=== PATIENT | female | born 1935 | race Caucasian/White ===

== ENCOUNTER 2023-02-10 10:03 | Outpatient (CLI) | payer MEDICARE, SELFPAY ==
[2023-02-10 13:09] LABS: Basophils Percent Auto 0.2 % (0.2-1.2); Eosinophils Absolute Auto 0.1 K/mm3 (0-0.3); Eosinophils Percent Auto 0.8 % (0-4.4); Hematocrit 40.1 % (37.0-47.0); Hemoglobin 12.8 g/dL (12.0-15.0); Immature Granulocyte Absolute 0.02 K/mm3 (0.00-0.031); Immature Granulocyte Percent A 0.3 % (0-0.5); Lymphocytes Absolute Auto 1.28 K/mm3 (0.9-3.2); Lymphocytes Percent Auto 20.2 % (18.3-44.2); Mean Corpuscular HGB Conc 31.9 g/dl (32-36); Mean Corpuscular Volume 100.3 fl (80-100); Mean Platelet Volume 10.5 fl (7.4-10.4); Monocytes Absolute Auto 0.4 K/mm3 (0.1-0.6); Monocytes Percent Auto 6.9 % (2.6-8.5); Neutrophils Absolute Auto 4.6 K/mm3 (1.3-6.7); Neutrophils Percent Auto 71.6 % (45.5-73.1); Platelet Count Result 277 k/mm3 (150-375); White Blood Count 6.4 K/mm3 (4.5-10.0)
[2023-02-10 13:30] LABS: Alanine Aminotransferase 24 U/L (6-35); Alkaline Phosphatase 90 U/L (38-126); Anion Gap 7 mmol/L (8-16); Aspartate Amino Transferase 32 U/L (14-36); Bilirubin,Total 0.5 mg/dL (0.2-1.3); Blood Urea Nitrogen 23 mg/dL (7-17); Carbon Dioxide 29 mmol/L (22-30); Chloride 104 mmol/L (98-107); Cholesterol 177 mg/dL (0-200); Estimated Glomerular Filt Rate > 60; Glucose 102 mg/dL (65-110); HDL Direct 58 mg/dL; Potassium 3.8 mmol/L (3.4-5.0); Sodium 140 mmol/L (137-145); Triglycerides 74 mg/dL (<150)
[2023-02-10 13:34] LABS: Hemoglobin A1C 5.6 % (<5.7)
[2023-02-10 13:50] LABS: LDL Cholesterol Direct 91 mg/dL
[2023-02-10 13:58] LABS: Vitamin D 25 Hydroxy 19.5 ng/mL
== END 2023-02-10 10:04 | disposition home or self-care (01) ==
LOC: ANHGOSHLAB 10:04
PROVIDERS: PCP Family Medicine; Visit Provider Nurse Practitioner Family
DX: Z13.21 Encounter for screening for nutritional disorder (principal); Z13.220 Encounter for screening for lipoid disorders; I10 Essential (primary) hypertension; Z13.29 Encounter for screening for other suspected endocrine disorder
CPT/HCPCS: 36415; 80053; 80061; 82306; 83036; 84443; 85025

== ENCOUNTER → 2023-05-20 13:22 | Outpatient (CLI) | payer MEDICARE, SELFPAY ==
--- NOTE | ~2023-05-20 | XR_ITS ---
EXAMINATION: XR chest 2V DATE: 05/20/2023 13:36 INDICATION: Mid chest pain. TECHNIQUE: Frontal and lateral views of the chest were obtained. COMPARISON: Chest 2 views 02/28/2014 FINDINGS: There is mild atelectasis at left lung base. No pleural effusion or pneumothorax. The heart size is normal. IMPRESSION: 1. Mild atelectasis at left lung base. Reviewed, dictated and finalized at location E.
== END ==
PROVIDERS: PCP Family Medicine; Visit Provider Family Medicine
DX: J98.11 Atelectasis (principal)
CPT/HCPCS: 71046

== ENCOUNTER 2023-07-01 16:01 | Inpatient (IN) | payer MEDICARE, SELFPAY ==
--- NOTE | ~2023-07-01 | CT_ITS ---
EXAMINATION: CT abdomen pelvis w con DATE: 07/01/2023 20:02 INDICATION: Rectal bleeding. History of hemorrhoids. Abdominal pain. TECHNIQUE: Computed tomography (CT) of the abdomen and pelvis was performed with 100 cc Omnipaque 350 intravenous contrast. The dose-length product was 1373.98 mGy-cm. Automated exposure control and ite rative reconstruction technique were employed. COMPARISON: None. FINDINGS: Lung bases are unremarkable. Heart size normal. No significant pleural or pericardial effus ion. There are bilateral renal cysts. There is a 5.3 x 3.7 cm left adnexal cyst, likely ovarian. House raymundo diverticulosis without evidence for diverticulitis. Nonobstructive bowel pattern. No free air or free fluid. Normal appendix. No significant vascular abnormality. The liver, spleen, pancreas, adrenal glands are unremarkable. No solid renal masses are identified. N o hydronephrosis. No free air or free fluid. IMPRESSION: 1. No acute abdominal abnormality. 2: Left adnexal cyst measuring 5.3 cm. Differential diagnosis includes functional cyst, peritoneal i nclusion cyst, cystadenoma and cystadenocarcinoma. Reviewed, dictated and finalized at location A. IMPRESSION: 1. No acute abdominal abnormality. 2: Left adnexal cyst measuring 5.3 cm. Differential diagnosis includes functio nal cyst, peritoneal inclusion cyst, cystadenoma and cystadenocarcinoma.
[2023-07-01 16:25] VITALS: BP 127/61; PULSE 108; RESP 18; TEMP 36.2; O2SAT 99
[2023-07-01 18:59] LABS: Basophils Percent Auto 0.6 % (0.2-1.2); Eosinophils Absolute Auto 0.1 K/mm3 (0-0.3); Eosinophils Percent Auto 1.9 % (0-4.4); Hematocrit 25.4 % (37.0-47.0); Hemoglobin 8.2 g/dL (12.0-15.0); Immature Granulocyte Absolute 0.03 K/mm3 (0.00-0.031); Immature Granulocyte Percent A 0.4 % (0-0.5); Lymphocytes Absolute Auto 1.28 K/mm3 (0.9-3.2); Lymphocytes Percent Auto 18.2 % (18.3-44.2); Mean Corpuscular HGB Conc 32.3 g/dl (32-36); Mean Corpuscular Hemoglobin 32.3 pg (26-34); Monocytes Absolute Auto 0.5 K/mm3 (0.1-0.6); Monocytes Percent Auto 7.1 % (2.6-8.5); Neutrophils Percent Auto 71.8 % (45.5-73.1); Platelet Count Result 257 k/mm3 (150-375); Red Blood Count 2.54 M/mm3 (4.2-5.4); Red Cell Distribution Width 12.9 % (11.5-14.5)
[2023-07-01 19:11] LABS: Alanine Aminotransferase 25 U/L (6-35); Albumin Level 3.6 g/dL (3.5-5.1); Alkaline Phosphatase 76 U/L (38-126); Anion Gap 5 mmol/L (8-16); Aspartate Amino Transferase 27 U/L (14-36); Bilirubin,Total 0.3 mg/dL (0.2-1.3); Blood Urea Nitrogen 32 mg/dL (7-17); Calcium 8.5 mg/dL (8.4-10.2); Carbon Dioxide 28 mmol/L (22-30); Chloride 103 mmol/L (98-107); Estimated Glomerular Filt Rate > 60; Glucose 128 mg/dL (65-110); INR 1.1; Potassium 3.5 mmol/L (3.4-5.0); Prothrombin Time 14.6 Seconds (11.1-14.7); Sodium 136 mmol/L (137-145)
[2023-07-01 19:12] LABS: Partial Thromboplastin Time 24.9 SECONDS (22.3-36.8)
[2023-07-01 20:05] VITALS: BP 147/84; PULSE 104; RESP 16; O2SAT 97
--- NOTE | 2023-07-01 20:12 | ED.GENADULT ---
HPI - General Adult General Chief complaint: GI Bleed Stated complaint: rectal bleeding Time Seen by Provider: 07/01/23 19:21 History of Present Illness HPI narrative: Patient is a 88-year-old female who presents emergency department with chief complaint of GI bleed. Patient reports that she has history of anemia and was supposed to take iron supplements but has not been able to take them due to constipation patient reports that she noticed that she started having blood mixed with her stool and has had melanotic colored stool today the patient reports that she has had no lightheadedness denies chest pain denies shortness of breath but she has a little bit of an uncomfortable feeling throughout her abdomen. Patient denies being on any blood thinners does report that she takes aspirin Related Data Home Medications Medication Instructions Recorded Confirmed vit C 250 mg-vit E 90 mg-zinc 40 1 tablet PO BID 10/29/21 02/05/23 mg-copper 1 [id number] capsule (PreserVision AREDS-2) ferrous sulfate 325 mg (65 mg 325 mg PO DAILY 02/12/23 iron) tablet Allergies Allergy/AdvReac Type Severity Reaction Status Date / Time No Known Allergies Allergy Verified 05/20/23 12:54 Review of Systems Review of Systems: A 10 system review of systems was completed on the patient and is negative except for what is stated in the HPI. Nursing and ancillary documentation was reviewed. [facility] Past Medical History Medical History Anemia Dyslipidemia Essential (primary) hypertension Macular degeneration Osteoarthritis Osteopenia Prediabetes Family History Family History Sibling Family history of malignant neoplasm of breast in first degree relative Social History Social History Smoking status: Former smoker Second hand tobacco smoke exposure: No Smoking end date: 09/20/79 Alcohol intake: current Substance use type: does not use Lack of Transportation: No Lack of Food: Never True Current Housing: I Have Housing Concerned About Future Housing: No Difficulty Paying Gas/Electric Bills: No Difficulty Paying for Meds: No Currently Unemployed: No Education: Master's Degree or Higher Difficulty w/ Childcare or Family Care: No Living arrangements: alone Exam Narrative: GENERAL: Well-appearing, well-nourished, and in no acute distress. HEAD: Normocephalic, atraumatic. EYES: PERRLA and EOMI. ENT: Nares clear, no rhinorrhea or epistaxis. Mucous membranes moist. NECK: Supple. CHEST: Clear to auscultation. No respiratory distress. HEART: Regular rate and rhythm. No murmur heard. Normal peripheral pulses. ABDOMEN: Soft, nontender, nondistended, normal active bowel sounds. : Melanotic guaiac positive stool EXTREMITIES: Normal range of motion. No edema. SKIN: Warm, dry, no rash. NEURO: No focal deficits. Alert and oriented x3. PSYCH: Normal mood and affect. Course Vital Signs Vital signs: Vital Signs Temperature 36.2 C L 07/01/23 16:25 Pulse Rate 108 H 07/01/23 16:25 Respiratory Rate 18 07/01/23 16:25 Blood Pressure 127/61 07/01/23 16:25 Pulse Oximetry 99 07/01/23 16:25 Oxygen Delivery Room Air 07/01/23 16:25 Temperature 36.2 C L 07/01/23 16:25 Pulse Rate 104 H 07/01/23 20:05 Respiratory Rate 16 07/01/23 20:05 Blood Pressure 147/84 H 07/01/23 20:05 Pulse Oximetry 97 07/01/23 20:05 Oxygen Delivery Room Air 07/01/23 16:25 Medical Decision Making [facility] Narrative Medical decision making narrative: Differential diagnosis includes lower GI bleed, AVM, hemorrhoid, colitis, diverticulitis Laboratory studies showed a white count of 7.0 hemoglobin of 8.2 this is a significant change from her previous hemoglobin from February 06 that was 12.8 Electrolytes are wit
--- NOTE | 2023-07-01 21:02 | PM.IMHP ---
H&P: HPI History of Present Illness Date/Time: 07/01/23 21:02 Chief Complaint: Dark stool Narrative: This is an 88-year-old female with past medical history significant for hypertension, arthritis, GERD. Patient presents to the emergency room after having melena x1 day and 1 episode of bright red blood per rectum denies any hematemesis or coffee-ground emesis. Patient has been in her usual state of health denies weight loss early satiety nausea vomiting or abdominal pain no changes in stool character. Preliminary workup was significant for Guiac was positive. Preliminary hemoglobin 8 hematocrit 25 Review of Systems Review of Systems: Melena Constitutional: Constitutional: Denies chills, Denies fatigue, Denies fever(s), Denies malaise, Denies poor appetite and Denies weakness Eyes: Eyes: Denies change in vision ENT: Denies dysphagia, Denies vertigo, Denies dizziness and Denies odynophagia Cardiovascular: Cardiovascular: Denies chest pain, Denies radiating jaw, neck or arm pain and Denies palpitations Respiratory: Respiratory: Denies cough, Denies excessive phlegm production and Denies dyspnea Gastrointestinal: Gastrointestinal: Denies abdominal pain, Reports melena, Reports hematochezia, Denies change in bowel habits, Denies coffee ground emesis, Denies constipation, Denies dyspepsia, Denies heartburn, Denies nausea, Denies vomiting and Denies hematemesis Genitourinary: Genitourinary: Denies dysuria Musculoskeletal: Musculoskeletal: Reports arthralgias (knee R) Integumentary/Breasts: Skin/Breast: Denies rash Neurologic: Denies focal weakness and Denies Sensory deficit (Neuro) Psychiatric: Psychiatric: Reports no additional psychiatric complaints and Reports as per HPI Endocrine: Endocrine: Denies cold intolerance, Denies fatigue, Denies flushing, Denies heat intolerance, Denies polyphagia, Denies polydipsia and Denies palpitations Hematologic/Lymphatic: Hematologic/Lymphatic: Reports no additional hematologic/lymphatic complaints and Reports as per HPI Allergic/Immunologic: Allergic/Immunologic: Reports no additional allergic/immunologic complaints and Reports as per HPI PMFSH Past Medical History Medical History Anemia Dyslipidemia Essential (primary) hypertension Macular degeneration Osteoarthritis Osteopenia Prediabetes Family History Family History Sibling Family history of malignant neoplasm of breast in first degree relative Social History Social History Smoking status: Former smoker Tobacco type: cigarettes Second hand tobacco smoke exposure: No Smoking end date: 09/20/79 Alcohol intake: current Substance use: never Substance use type: does not use Lack of Transportation: No Lack of Food: Never True Current Housing: I Have Housing Concerned About Future Housing: No Difficulty Paying Gas/Electric Bills: No Difficulty Paying for Meds: No Currently Unemployed: No Education: Master's Degree or Higher Difficulty w/ Childcare or Family Care: No Living arrangements: alone Spiritual care concerns: No Meds Home Medications and Allergies Home Medications Medication Instructions Recorded Confirmed Type indapamide 2.5 mg tablet 2.5 mg PO DAILY #90 tabs 08/03/22 07/01/23 Rx diclofenac sodium 75 mg 75 mg PO BID #180 ea 02/03/23 07/01/23 Rx tablet,delayed release ferrous sulfate 325 mg (65 mg 325 mg PO DAILY 02/12/23 07/01/23 History iron) tablet omeprazole 20 mg capsule,delayed 20 mg PO DAILY #90 caps 05/20/23 07/01/23 Rx release amlodipine 10 mg tablet 10 mg PO DAILY #90 tabs 06/01/23 07/01/23 Rx magnesium 400 mg PO DAILY 07/01/23 07/01/23 History potassium 99 mg PO DAILY 07/01/23 07/01/23 History turmeric 2,000 mg PO DAILY joint health 07/01/23 07/01/23 History
[2023-07-01 22:11] VITALS: BP 121/72; PULSE 105; RESP 16; O2SAT 98
[2023-07-01 22:25] VITALS: BP 108/83; PULSE 93; RESP 16; TEMP 35.9; O2SAT 98
[2023-07-01 22:29] VITALS: BMI 37.5
--- NOTE | 2023-07-01 22:48 | ADMGEN ---
This patient, Vida Estrada, was admitted to 3 Med Surg Room 306-02. Patient/family oriented to hospital policies and general routines including ID bracelet, bed and alarms, visiting hours, pain management, procedures, bathroom and other care routines, personal items, smoking policy, room service/diet, and visiting hours. Information on how to activate the Rapid Response Team has been discussed. Patient/Family are encouraged to report perceived risks to care and to ask questions if they do not understand what they are told or what they should do.
[2023-07-02] VITALS (16 sets, daily range): BP systolic 99–120; BP diastolic 30–70; PULSE 78–127; RESP 13–20; TEMP 36.2–36.6; O2SAT 91–100
--- NOTE | 2023-07-02 | ECHO_ITS ---
Patient Info Name: Vida Estrada Age: 88 years : 1935 Gender: Female Ht: 63 in Wt: 211 lbs BSA: 2.11 m2 HR: 78 bpm BP: 120 / 50 mmHg Heart Rhythm: Sinus Rhythm Technical Quality: Fair Exam Date: 07/02/2023 1:50 PM Exam Location: [facility] Pulmonary Exam Room: 306 Patient Status: Outpatient Admit Date: 07/01/2023 Staff Ordering Physician: Stephen Harman MD Air Motor Repairer: Beatrice Tapia RDCS Attending Provider: Shawanda Vu MD Exam Type: CA echo dop color flow w con Study Info Indications - dysrythmias Complete two-dimensional, color flow and Doppler transthoracic echocardiogram is performed with contrast to opacify the left ventricle and to improve the deliniation of the left ventricle endocardial borders. Contrast/Agitated Saline Contrast/Ag. Saline: Definity Amount: 2.00 ml Administered By: Beatrice Tapia [facility] Existing IV Access: Yes IV Access Condition: patent with no signs of infiltration Summary 1. Left ventricular chamber dimension is normal. 2. Left ventricular systolic function is hyperdynamic, estimated at >70%. 3. There is mild asymmetric septal increased left ventricular wall thickness. 4. The left ventricular diastolic function is grade I diastolic dysfunction. 5. Left atrial chamber dimension is mildly enlarged. 6. There is moderate aortic valve sclerosis. 7. There is mild tricuspid valve regurgitation. 8. Moderate pulmonary hypertension, estimated pulmonary arterial systolic pressure is 54 mmHg. 9. There is mild pulmonic regurgitation. Left Ventricle Left ventricular chamber dimension is normal. Left ventricular systolic function is hyperdynamic, estimated at >70%. There is mild asymmetric septal increased left ventricular wall thickness. The left ventricular diastolic function is grade I diastolic dysfunction. Right Ventricle Right ventricular chamber dimension is normal. Right ventricular systolic function is normal. Left Atria Left atrial chamber dimension is mildly enlarged. Right Atria Right atrial chamber dimension is normal. Atrial Septum Intact interatrial septum visualized by color flow imaging. Aortic Valve The aortic valve is trileaflet. There is moderate aortic valve sclerosis. There is no aortic valve stenosis. There is trace aortic valve regurgitation. Pulmonic Valve The pulmonic valve is normal. There is no pulmonic valve stenosis. There is mild pulmonic regurgitation. Mitral Valve The mitral valve has calcified annulus. There is no mitral valve stenosis. There is trace mitral valve regurgitation. Tricuspid Valve The tricuspid valve leaflets are normal. There is no significant tricuspid valve stenosis. There is mild tricuspid valve regurgitation. Moderate pulmonary hypertension, estimated pulmonary arterial systolic pressure is 54 mmHg. Pericardium/Pleural The pericardium appears normal. There is no pericardial effusion. Inferior Vena Cava Normal inferior vena cava with <50% collapse upon inspiration consistent with normal right atrial pressure, 10 mmHg. Aorta The aortic root size at the sinus of Valsalva is normal. Left Ventricular Outflow Tract Name Value Normal LVOT 2D LVOT Diameter 2.07 cm LVOT Doppler
[2023-07-02] MEDS: SODIUM CHLORIDE 0.9% IV 1,000 ML 125 ML IV CONT (00:05)
[2023-07-02 00:16] LABS: Hematocrit 23.8 % (37.0-47.0); Hemoglobin 7.5 g/dL (12.0-15.0)
[2023-07-02 04:58] LABS: Hematocrit 21.7 % (37.0-47.0)
[2023-07-02] MEDS: PANTOPRAZOLE SODIUM IV 40 MG VIAL IV PUSH (08:01)
[2023-07-02 09:27] LABS: Hematocrit 20.6 % (37.0-47.0); Hemoglobin 6.6 g/dL (12.0-15.0)
--- NOTE | 2023-07-02 10:30 | PM.IMPN ---
Progress Note: A&P Assessment and Plan (1) Acute GI bleeding: Code(s): K92.2 - Gastrointestinal hemorrhage, unspecified Status: Acute Assessment and Plan: Patient with acute rectal bleeding. She is having bright red blood per rectum probably related to either hemorrhoids and/or diverticulosis. She states she has had a colonoscopy 3-4 years ago although no records noted in the chart here. She does take chronic NSAIDs. She was presumably iron deficient prior to admission so she may have an underlying etiology for her anemia such as gastritis or peptic ulcer disease. GI has been consulted. Hemoglobin has dropped to 6.6 so will transfuse 1 unit. Some of the drop may be related to IV fluids. Continue Protonix. Serial hemoglobin after transfusion to ensure stability (2) Acute blood loss anemia: Code(s): D62 - Acute posthemorrhagic anemia Status: Acute Assessment and Plan: Patient's hemoglobin was 8.2 on admission. Hemoglobin was normal in January but she states that she was diagnosed with anemia recently and started on iron. She could not tolerate the iron due to constipation. Thus it is unclear what her baseline hemoglobin was prior to the acute blood loss. As mentioned above, she may have an underlying cause of anemia. Will check iron studies, B12 and folate levels. Transfuse. She will need iron supplement after discharge. (3) Dysrhythmia: Code(s): I49.9 - Cardiac arrhythmia, unspecified Status: Acute Assessment and Plan: Patient with dysrhythmia noted on the telemetry possibly AFib and/or Aflutter. Will check EKG. Check echocardiogram. Check electrolytes. Will add metoprolol when BP improves. Monitor on telemetry. May need home monitoring. Obviously no anticoagulation. (4) Essential (primary) hypertension: Code(s): I10 - Essential (primary) hypertension Status: Acute Assessment and Plan: BP soft. Hold anti-HTN medications. Continue IV fluids. Transfusion will help. (5) Ovarian cyst: Code(s): N83.209 - Unspecified ovarian cyst, unspecified side Status: Acute Assessment and Plan: CT scan showing no acute process but did show a left ovarian cyst. Given her age, this will need to be monitored as outpatient. Plan DVT Prophylaxis - SCDs Code status - full Subjective Date/time seen: 07/02/23 10:30 Interval history: 88yo female with pre-DM and HTN here for rectal bleeding. Patient states that she was diagnosed with iron deficiency anemia few months ago was given iron. She had trouble tolerate the iron stopped it. She is on diclofenac chronically. She rarely uses other [id number] NSAIDs. She states that she developed bright red blood per rectum mixed with brown stool. She denies having black stools. Last colonoscopy was 3-4 years ago showing no polyps. Patient does mention that she has had swelling in her rectal area and she did use a cream for this with improvement. It was suspected it was a steroid cream. Exam Narrative: AF 97.1 99/70 105 18 94% ra Gen - NARD Chest - CTA bilaterally, nml RR CV - RRR S1/S2. Tele showing sinus rhythm with episodes of possible AFib Abd - Soft, obese, NT Ext - No pedal edema Psych - Nml mood and affect Skin - Warm and dry Objective Data Vital Signs Vital Signs: Vital Signs - 24 hr 07/01/23 16:25 07/01/23 20:05 07/01/23 22:11 Temperature 97.1 F L Pulse Rate 108 H 104 H 105 H Respiratory Rate 18 16 16 Blood Pressure 127/61 147/84 H 121/72 Pulse Oximetry 99 97 98 Oxygen Delivery Room Air 07/01/23 22:25 07/02/23 00:00 07/02/23 04:00 Temperature 96.7 F L Pulse Rate 93 108 H 98 Respiratory Rate 16 Blood Pressure 108/83 Pulse Oximetry 98 Oxygen Delivery 07/02/23 06:00 07/02/23 08:00 Temperature 97.1 F L Pulse Rate 90 105 H Respiratory Rate 18 Blood Pressure 99/70 L Pulse Oximetry 94 Oxygen Delivery Int
--- NOTE | 2023-07-02 10:54 | ECG_ITS ---
Measurements Intervals [place] Rate: 90 P: -19 MT: 232 QRS: 10 QRSD: 95 T: 26 QT: 343 QTc: 422 Interpretive Statements SINUS RHYTHM WITH FIRST DEGREE AV BLOCK NONSPECIFIC ST & T-WAVE ABNORMALITY ABNORMAL ECG NO PREVIOUS ECG AVAILABLE FOR COMPARISON Electronically Signed On 07-02-2023 14:08:15 CDT by Silas Farris M.D.
[2023-07-02] MEDS: ACETAMINOPHEN 325 MG TABLET 650 MG PO (11:15)
[2023-07-02] MEDS: SODIUM CHLORIDE 0.9% IV 250 ML 30 ML IV CONT (11:15)
[2023-07-02 11:49] LABS: Anion Gap 4 mmol/L (8-16); Blood Urea Nitrogen 28 mg/dL (7-17); Carbon Dioxide 25 mmol/L (22-30); Chloride 107 mmol/L (98-107); Estimated CRCL calculation 53 ml/min; Estimated Glomerular Filt Rate > 60; Glucose 109 mg/dL (65-110); Magnesium 2.1 mg/dL (1.6-2.3); Potassium 3.1 mmol/L (3.4-5.0); Sodium 136 mmol/L (137-145)
[2023-07-02 14:16] LABS: Iron 36 ug/dL (37-170)
[2023-07-02] MEDS: PERFLUTREN LIPID MICROSPHERES 1.5 ML VIAL DILUTED TO 10 ML TOTAL VOLUME IV PUSH (14:20)
--- NOTE | 2023-07-02 15:14 | WPDGICN ---
Assessment and Plan Assessment and plan (1) Acute blood loss anemia: Code(s): D62 - Acute posthemorrhagic anemia Status: Acute Assessment and Plan: noted brbpr, wonder if could be lower source such as diverticulosis, avm, etc monitor for more signs of bleeding no GI coverage this , if further drop h/h or more obvious bleeding then will need to transfer for more urgent scopes otherwise we are planning to do EGD/colonoscopy Wednesday (I already ordered bowel prep for this Wednesday evening) (2) Acute GI bleeding: Code(s): K92.2 - Gastrointestinal hemorrhage, unspecified Status: Acute Assessment and Plan: s/p blood transfusion also protonix since she is using daily nsaid's and PUD could be a source of bleeding (3) Rectal bleeding: Code(s): K62.5 - Hemorrhage of anus and rectum Status: Acute (4) Colon, diverticulosis: Code(s): K57.30 - Diverticulosis of large intestine without perforation or abscess without bleeding Status: Acute Assessment and Plan: ? 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 anti-inflammatories (NSAID) Status: Acute Assessment and Plan: on hold (6) Essential (primary) hypertension: Code(s): I10 - Essential (primary) hypertension Status: Acute GI Consult Note Consult date/time: 07/02/23 15:14 Reason for consult: rectal bleeding, colon diverticulosis, acute anemia HPI: Vida Estrada is a 88 year old female with hypertension, arthritis on daily diclofenac, colon diverticulosis with last colonoscopy [address] Nascimento.?She came here with new onset of bright red blood per rectum about 3 days ago more than one episode, denies abdominal pain, no dark stools, no nausea. Never had EGD. She has been diagnosed with RONAN but last hgb ~ 12, on presentation hgb 8 repeat down to 6.6, she already got one unit of PRBC. CT scan showed colon diverticulosis. BUN 38, creat 0.7 Review of Systems Constitutional: Constitutional: Denies chills Eyes: Eyes: Denies blurry vision ENT: Reports Normal hearing present Cardiovascular: Cardiovascular: Denies chest pain Respiratory: Respiratory: Denies cough Gastrointestinal: Gastrointestinal: Denies abdominal pain and Reports hematochezia Genitourinary: Genitourinary: Denies urinary urgency Musculoskeletal: Musculoskeletal: Reports arthralgias (chronic) Integumentary/Breasts: Skin/Breast: Denies rash Neurologic: Denies confusion Psychiatric: Psychiatric: Denies behavioral changes [facility] Past Medical History Medical History (Updated 07/02/23 @ 15:19 by Luis Silver MD) Anemia Colon, diverticulosis Dyslipidemia Essential (primary) hypertension Macular degeneration NSAID long-term use Osteoarthritis Osteopenia Prediabetes Rectal bleeding Family History Family History Sibling Family history of malignant neoplasm of breast in first degree relative Social History Social History Smoking status: Former smoker Tobacco type: cigarettes Second hand tobacco smoke exposure: No Smoking end date: 09/20/79 Alcohol intake: current Substance use: never Substance use type: does not use Lack of Transportation: No Lack of Food: Never True Current Housing: I Have Housing Concerned About Future Housing: No Difficulty Paying Gas/Electric Bills: No Difficulty Paying for Meds: No Currently Unemployed: No Education: Master's Degree or Higher Difficulty w/ Childcare or Family Care: No Living arrangements: alone Spiritual care concerns: No Meds Home Medications and Allergies Home Medications Medication Instructions Recorded Confirmed Type indapamide 2.5 mg tablet 2.5 mg PO DAILY #90 tabs 08/03/22 07/01/23 Rx diclofenac sodium 75 mg 75 m
[2023-07-02 15:37] LABS: Hematocrit 26.1 % (37.0-47.0); Hemoglobin 8.2 g/dL (12.0-15.0)
[2023-07-02 15:55] LABS: Folic Acid 13.3 ng/mL (2.76->20)
--- NOTE | 2023-07-02 16:01 | IVDEFINITY ---
Prior to administration of IV Definity the patient was educated on the risks and benefits of the imaging enhancing agent including potential adverse side effects. The patient verbalized understanding. Allergies were verified. No exclusion criteria were identified and at least one of the following inclusion criteria were met: 1) physician request, 2) patient technically difficult to image (per the [place] [employer] guidelines of two or more segments not discernable within the apical view), or 3) questionable left ventricular function. ?
[2023-07-02] MEDS: POTASSIUM CHLORIDE 20 MEQ ER TABLET 40 MEQ PO (17:49)
[2023-07-02] MEDS: CYANOCOBALAMIN INJ 1,000 MCG/ML VIAL 1000 MCG IM (17:50)
[2023-07-02 18:12] LABS: Percent Iron Saturation 15 % (20-50)
[2023-07-02] MEDS: SODIUM CHLORIDE 0.9% IV 1,000 ML 75 ML IV CONT (20:16)
[2023-07-02 21:29] LABS: Hemoglobin 7.4 g/dL (12.0-15.0)
[2023-07-03] VITALS (19 sets, daily range): BP systolic 95–127; BP diastolic 35–68; PULSE 72–109; RESP 16–19; TEMP 36.2–36.6; O2SAT 93–100
[2023-07-03 06:55] LABS: Basophils Percent Auto 0.6 % (0.2-1.2); Eosinophils Absolute Auto 0.3 K/mm3 (0-0.3); Eosinophils Percent Auto 6.5 % (0-4.4); Hematocrit 21.8 % (37.0-47.0); Immature Granulocyte Absolute 0.03 K/mm3 (0.00-0.031); Immature Granulocyte Percent A 0.6 % (0-0.5); Lymphocytes Percent Auto 21.8 % (18.3-44.2); Mean Corpuscular HGB Conc 31.7 g/dl (32-36); Mean Corpuscular Hemoglobin 31.9 pg (26-34); Mean Corpuscular Volume 100.9 fl (80-100); Mean Platelet Volume 9.9 fl (7.4-10.4); Monocytes Absolute Auto 0.5 K/mm3 (0.1-0.6); Monocytes Percent Auto 8.9 % (2.6-8.5); Neutrophils Absolute Auto 3.1 K/mm3 (1.3-6.7); Neutrophils Percent Auto 61.6 % (45.5-73.1); Nucleated Red Blood Cells Perc 0.4 % (0.0-0.2); Platelet Count Result 198 k/mm3 (150-375); Red Blood Count 2.16 M/mm3 (4.2-5.4); Red Cell Distribution Width 15.3 % (11.5-14.5); White Blood Count 5.1 K/mm3 (4.5-10.0)
[2023-07-03 07:04] LABS: Hemoglobin 6.9 g/dL (12.0-15.0)
[2023-07-03 07:08] LABS: Anion Gap 3 mmol/L (8-16); Blood Urea Nitrogen 27 mg/dL (7-17); Carbon Dioxide 23 mmol/L (22-30); Chloride 110 mmol/L (98-107); Estimated CRCL calculation 61 ml/min; Estimated Glomerular Filt Rate > 60; Glucose 101 mg/dL (65-110); Potassium 3.1 mmol/L (3.4-5.0); Sodium 136 mmol/L (137-145)
[2023-07-03] MEDS: ACETAMINOPHEN 325 MG TABLET 650 MG PO ×2 (07:57→13:55)
[2023-07-03] MEDS: CYANOCOBALAMIN 1,000 MCG TABLET 1000 MCG PO (08:01)
[2023-07-03] MEDS: POTASSIUM CHLORIDE 20 MEQ PACKET (FOR LIQUID) 40 MEQ PO (08:01)
[2023-07-03] MEDS: PANTOPRAZOLE SODIUM IV 40 MG VIAL IV PUSH (08:02)
[2023-07-03] MEDS: FUROSEMIDE INJ 40 MG/4 ML VIAL 20 MG IV PUSH (13:33)
--- NOTE | 2023-07-03 15:10 | PM.IMPN ---
Progress Note: A&P Assessment and Plan (1) Acute GI bleeding: Code(s): K92.2 - Gastrointestinal hemorrhage, unspecified Status: Acute Assessment and Plan: Patient with acute rectal bleeding. She is having bright red blood per rectum probably related to either hemorrhoids and/or diverticulosis. She states she has had a colonoscopy 3-4 years ago although no records noted in the chart here. She does take chronic NSAIDs. She was presumably iron deficient prior to admission so she may have an underlying etiology for her anemia such as gastritis or peptic ulcer disease. GI has been consulted. Hemoglobin dropped to 6.6 and was transfused 1 unit. Hgb improved but dropped again to 6.9. She is receiving 2U PRBC (no GI coverage this weekend so want to ensure improved HH). Continue Protonix. Serial hemoglobin after transfusion to ensure stability (2) Acute blood loss anemia: Code(s): D62 - Acute posthemorrhagic anemia Status: Acute Assessment and Plan: Patient's hemoglobin was 8.2 on admission. Hemoglobin was normal in January but she states that she was diagnosed with anemia recently and started on iron. She could not tolerate the iron due to constipation. Thus it is unclear what her baseline hemoglobin was prior to the acute blood loss. As mentioned above, she may have an underlying cause of anemia. Iron studies c/w iron deficiency (except low TIBC). Ferritn low end of normal at 33. B12 deficiency noted and replacement ordered. Folate level okay. She will need iron supplement after discharge. (3) Dysrhythmia: Code(s): I49.9 - Cardiac arrhythmia, unspecified Status: Acute Assessment and Plan: Patient with dysrhythmia noted on the telemetry possibly AFib and/or Aflutter vs loss of P wave from 1sr degree. EKG reviewed showing NSR. Echo showing EF 70%, mild asymmetric septal increased LV wall thicknss. Grade I diastolic dysfunction and moderate pulmonary HTN. Will add metoprolol when BP improves. Monitor on telemetry. May need home monitoring. Obviously no anticoagulation. (4) Essential (primary) hypertension: Code(s): I10 - Essential (primary) hypertension Status: Acute Assessment and Plan: BP soft. Hold anti-HTN medications. Stop IV fluids. (5) Ovarian cyst: Code(s): N83.209 - Unspecified ovarian cyst, unspecified side Status: Acute Assessment and Plan: CT scan showing no acute process but did show a left ovarian cyst. Given her age, this will need to be monitored as outpatient. Plan DVT Prophylaxis - SCDs Code status - full Subjective Date/time seen: 07/03/23 15:10 Interval history: 88yo female with pre-DM and HTN here for rectal bleeding. No complaints. Slept poorly last night due to noise. No CP. No abd or back pain. No rectal bleeding. Exam Narrative: AF 97.8 127/68 78 18 100% ra Gen - NARD sitting up in the chair Chest - CTA bilaterally, nml RR CV - RRR S1/S2. Tele showing sinus rhythm with ?Afib (P wave may be hidden with 1st degree AVB) Abd - Soft, obese, NT Ext - No pedal edema Psych - Nml mood and affect Skin - Warm and dry Objective Data Vital Signs Vital Signs: Vital Signs - 24 hr 07/02/23 16:00 07/02/23 21:35 07/02/23 23:19 Temperature 97.3 F L Pulse Rate 102 H 127 H 100 Respiratory Rate 20 Blood Pressure 111/69 Pulse Oximetry 96 Oxygen Delivery 07/02/23 20:00 07/03/23 00:00 07/03/23 04:00 Temperature Pulse Rate 81 99 97 Respiratory Rate Blood Pressure Pulse Oximetry Oxygen Delivery 07/03/23 06:00 07/03/23 08:00 07/03/23 08:00 Temperature 97.7 F Pulse Rate 72 75 Respiratory Rate 18 Blood Pressure 112/35 L Pulse Oximetry 93 93 Oxygen Delivery Room Air 07/03/23 10:25 07/03/23 10:40 07/03/23 11:25 Temperature 97.2 F L 97.7 F 97.5 F L Pulse Rate 99 100 100 Respiratory Rate 18 18 18 Blood Pressure 103/56 L 117/54 L 10
[2023-07-03 19:00] LABS: Hematocrit 32.6 % (37.0-47.0); Hemoglobin 10.5 g/dL (12.0-15.0)
[2023-07-03] MEDS: MELATONIN 3 MG TABLET PO (21:29)
[2023-07-04] VITALS (11 sets, daily range): BP systolic 121–151; BP diastolic 43–114; PULSE 65–104; RESP 16–18; TEMP 36–36.6; O2SAT 92–99
[2023-07-04 00:39] LABS: Hematocrit 28.9 % (37.0-47.0); Hemoglobin 9.4 g/dL (12.0-15.0)
[2023-07-04 06:17] LABS: Basophils Percent Auto 0.4 % (0.2-1.2); Eosinophils Absolute Auto 0.5 K/mm3 (0-0.3); Eosinophils Percent Auto 10.9 % (0-4.4); Hematocrit 28.5 % (37.0-47.0); Hemoglobin 9.1 g/dL (12.0-15.0); Immature Granulocyte Absolute 0.02 K/mm3 (0.00-0.031); Immature Granulocyte Percent A 0.4 % (0-0.5); Lymphocytes Absolute Auto 0.97 K/mm3 (0.9-3.2); Mean Corpuscular HGB Conc 31.9 g/dl (32-36); Mean Corpuscular Hemoglobin 31.3 pg (26-34); Mean Corpuscular Volume 97.9 fl (80-100); Mean Platelet Volume 9.6 fl (7.4-10.4); Monocytes Absolute Auto 0.5 K/mm3 (0.1-0.6); Monocytes Percent Auto 9.5 % (2.6-8.5); Neutrophils Absolute Auto 2.9 K/mm3 (1.3-6.7); Neutrophils Percent Auto 58.8 % (45.5-73.1); Platelet Count Result 212 k/mm3 (150-375); Red Blood Count 2.91 M/mm3 (4.2-5.4); Red Cell Distribution Width 15.9 % (11.5-14.5); White Blood Count 4.9 K/mm3 (4.5-10.0)
[2023-07-04 06:29] LABS: Anion Gap 3 mmol/L (8-16); Blood Urea Nitrogen 25 mg/dL (7-17); Carbon Dioxide 26 mmol/L (22-30); Chloride 109 mmol/L (98-107); Estimated CRCL calculation 53 ml/min; Estimated Glomerular Filt Rate > 60; Glucose 100 mg/dL (65-110); Sodium 138 mmol/L (137-145)
[2023-07-04] MEDS: POTASSIUM CHLORIDE 20 MEQ ER TABLET 40 MEQ PO (06:55)
[2023-07-04] MEDS: PANTOPRAZOLE SODIUM IV 40 MG VIAL IV PUSH (08:45)
[2023-07-04] MEDS: CYANOCOBALAMIN 1,000 MCG TABLET 1000 MCG PO (08:46)
[2023-07-04 12:18] LABS: Hematocrit 32.2 % (37.0-47.0); Hemoglobin 9.8 g/dL (12.0-15.0)
--- NOTE | 2023-07-04 15:41 | PM.IMPN ---
Progress Note: A&P Assessment and Plan (1) Acute GI bleeding: Code(s): K92.2 - Gastrointestinal hemorrhage, unspecified Status: Acute Assessment and Plan: Patient with acute rectal bleeding. She is having bright red blood per rectum probably related to either hemorrhoids and/or diverticulosis. She states she has had a colonoscopy 3-4 years ago although no records noted in the chart here. She does take chronic NSAIDs. She was presumably iron deficient prior to admission so she may have an underlying etiology for her anemia such as gastritis or peptic ulcer disease. GI has been consulted. Hemoglobin dropped to 6.6 and was transfused 1 unit. Hgb improved but dropped again to 6.9 and received 2U PRBC. Hgb climbed to 9 range and stable. Continue Protonix. Serial hemoglobin to ensure stability Plan for endoscopic eval tomorrow. (2) Acute blood loss anemia: Code(s): D62 - Acute posthemorrhagic anemia Status: Acute Assessment and Plan: Patient's hemoglobin was 8.2 on admission. Hemoglobin was normal in January but she states that she was diagnosed with anemia recently and started on iron. She could not tolerate the iron due to constipation. Thus it is unclear what her baseline hemoglobin was prior to the acute blood loss. As mentioned above, she may have an underlying cause of anemia. Iron studies c/w iron deficiency (except low TIBC). Ferritn low end of normal at 33. B12 deficiency noted and replacement ordered. Folate level okay. She will need iron supplement after discharge. Hgb stable in the 9 range. Monitor. (3) Dysrhythmia: Code(s): I49.9 - Cardiac arrhythmia, unspecified Status: Acute Assessment and Plan: Patient with dysrhythmia noted on the telemetry possibly AFib and/or Aflutter vs loss of P wave from 1st degree. EKG reviewed showing NSR. Echo showing EF 70%, mild asymmetric septal increased LV wall thickness. Grade I diastolic dysfunction and moderate pulmonary HTN. Will add metoprolol when BP improves. Monitor on telemetry. May need home monitoring. Obviously no anticoagulation. (4) Essential (primary) hypertension: Code(s): I10 - Essential (primary) hypertension Status: Acute Assessment and Plan: BP was soft. Holding anti-HTN medications. BP better controlled (5) Ovarian cyst: Code(s): N83.209 - Unspecified ovarian cyst, unspecified side Status: Acute Assessment and Plan: CT scan showing no acute process but did show a left ovarian cyst. Given her age, this will need to be monitored as outpatient. Plan DVT Prophylaxis - SCDs Code status - full Subjective Date/time seen: 07/04/23 15:41 Interval history: 88yo female with pre-DM and HTN here for rectal bleeding. 2 BMs today. No further rectal bleeding. Slept better last night. No CP or palpitations. No hx of AFib Exam Narrative: AF 97.4 128/54 77 16 99% ra Gen - NARD sitting up in the chair Chest - CTA bilaterally, nml RR CV - RRR S1/S2. Tele showing NSR with PVCs Abd - Soft, obese, NT Ext - No pedal edema Psych - Nml mood and affect Skin - Warm and dry Objective Data Vital Signs Vital Signs: Vital Signs - 24 hr 07/03/23 16:00 07/03/23 16:20 07/03/23 17:20 Temperature 97.4 F L 97.4 F L Pulse Rate 75 72 109 H Respiratory Rate 18 18 Blood Pressure 118/57 L 122/60 Pulse Oximetry 98 100 Oxygen Delivery 07/03/23 17:30 07/03/23 20:00 07/03/23 22:00 Temperature 97.4 F L 97.7 F Pulse Rate 109 H 98 78 Respiratory Rate 18 19 16 Blood Pressure 122/60 127/62 Pulse Oximetry 99 94 Oxygen Delivery Room Air 07/03/23 20:00 07/04/23 00:00 07/04/23 04:00 Temperature Pulse Rate 105 H 75 66 Respiratory Rate Blood Pressure Pulse Oximetry Oxygen Delivery 07/04/23 06:00 07/04/23 09:59 07/04/23 08:00 Temperature 96.8 F L Pulse Rate 65 Respiratory Rate 16 Blood Pressure 121/43 L
[2023-07-04] MEDS: BISACODYL 5 MG TABLET EC 20 MG PO (17:23)
[2023-07-04] MEDS: polyethylene glycoL 3350 238 GM BOTTLE PO (17:23)
[2023-07-04 18:40] LABS: Hematocrit 35.7 % (37.0-47.0); Hemoglobin 10.6 g/dL (12.0-15.0)
[2023-07-04] MEDS: IRON SUCROSE COMPLEX 100 MG in SODIUM CHLORIDE 0.9% IV 50 ML 220 MG IVPB (18:51)
[2023-07-04] MEDS: MELATONIN 3 MG TABLET PO (20:43)
[2023-07-05] VITALS (10 sets, daily range): BP systolic 90–140; BP diastolic 47–82; PULSE 65–99; RESP 16–18; TEMP 36.1–36.8; O2SAT 92–100
[2023-07-05 01:30] LABS: Hematocrit 33.7 % (37.0-47.0); Hemoglobin 10.5 g/dL (12.0-15.0)
[2023-07-05] MEDS: MAGNESIUM CITRATE 300 ML BTL PO (02:15)
[2023-07-05 06:44] LABS: Hematocrit 34.3 % (37.0-47.0); Hemoglobin 10.9 g/dL (12.0-15.0); Mean Corpuscular HGB Conc 31.8 g/dl (32-36); Mean Corpuscular Hemoglobin 31.6 pg (26-34); Mean Corpuscular Volume 99.4 fl (80-100); Mean Platelet Volume 9.7 fl (7.4-10.4); Platelet Count Result 262 k/mm3 (150-375); Red Blood Count 3.45 M/mm3 (4.2-5.4); Red Cell Distribution Width 15.6 % (11.5-14.5); White Blood Count 6.1 K/mm3 (4.5-10.0)
[2023-07-05 06:50] LABS: Anion Gap 9 mmol/L (8-16); Blood Urea Nitrogen 20 mg/dL (7-17); Carbon Dioxide 23 mmol/L (22-30); Chloride 107 mmol/L (98-107); Estimated CRCL calculation 61 ml/min; Estimated Glomerular Filt Rate > 60; Glucose 107 mg/dL (65-110); Magnesium 2.1 mg/dL (1.6-2.3); Potassium 3.2 mmol/L (3.4-5.0); Sodium 139 mmol/L (137-145)
[2023-07-05] MEDS: POTASSIUM CHLORIDE 20 MEQ ER TABLET 40 MEQ PO (08:09)
[2023-07-05] MEDS: PANTOPRAZOLE SODIUM IV 40 MG VIAL IV PUSH (08:10)
[2023-07-05] MEDS: CYANOCOBALAMIN 1,000 MCG TABLET 1000 MCG PO (08:12)
[2023-07-05] MEDS: IRON SUCROSE COMPLEX 100 MG in SODIUM CHLORIDE 0.9% IV 50 ML 220 MG IVPB (10:00)
--- NOTE | 2023-07-05 10:43 | PC.NURSE ---
to GI lab for procedure
[2023-07-05] MEDS: LACTATED RINGERS 1,000 ML 150 ML IV CONT (11:03)
--- NOTE | 2023-07-05 12:16 | WPDANESEPPF ---
Anes - Initial Pre Proc Eval Procedure: Operation Date: 07/05/23 15:00 Proposed Procedures p Esophagogastroduodenoscopy & Colonoscopy - Luis Silver MD Date/Time: 07/05/23 12:16 Surgeon: Shawanda Vu MD Pre Op Diagnosis: GI Bleed, Anemia Patient Data Age: 88 Gender: F Height: 1.6 m Weight: 96 kg Last Vital Signs Temp 97 F L 07/05/23 11:01 Pulse 98 07/05/23 11:01 Resp 18 07/05/23 11:01 BP 140/77 07/05/23 11:01 Pulse Ox 97 07/05/23 11:01 O2 Del Method Room Air 07/05/23 11:01 Allergies Allergy/AdvReac Type Severity Reaction Status Date / Time No Known Allergies Allergy Verified 07/05/23 10:58 Home Medications Medication Instructions Recorded Confirmed Type indapamide 2.5 mg tablet 2.5 mg PO DAILY #90 tabs 08/03/22 07/01/23 Rx diclofenac sodium 75 mg 75 mg PO BID #180 ea 02/03/23 07/01/23 Rx tablet,delayed release ferrous sulfate 325 mg (65 mg 325 mg PO DAILY 02/12/23 07/01/23 History iron) tablet omeprazole 20 mg capsule,delayed 20 mg PO DAILY #90 caps 05/20/23 07/01/23 Rx release amlodipine 10 mg tablet 10 mg PO DAILY #90 tabs 06/01/23 07/01/23 Rx magnesium 400 mg PO DAILY 07/01/23 07/01/23 History potassium 99 mg PO DAILY 07/01/23 07/01/23 History turmeric 2,000 mg PO DAILY joint health 07/01/23 07/01/23 History vit C 250 mg-vit E 90 mg-zinc 40 1 tablet PO BID 07/01/23 07/01/23 History mg-copper 1 [id number] capsule (PreserVision AREDS-2) Laboratory Tests 07/04/23 07/04/23 07/05/23 12:12 18:23 01:25 WBC RBC Hgb 9.8 L g/dL 10.6 L g/dL 10.5 L g/dL (12.0-15.0) (12.0-15.0) (12.0-15.0) Hct 32.2 L % 35.7 L % 33.7 L % (37.0-47.0) (37.0-47.0) (37.0-47.0) MCV MCH MCHC RDW Plt Count MPV Sodium Potassium Chloride Carbon Dioxide Anion Gap BUN Creatinine Estim Creat Clear Calc Estimated GFR Glucose Calcium Magnesium 07/05/23 06:11 WBC 6.1 K/mm3 (4.5-10.0) RBC 3.45 L M/mm3 (4.2-5.4) Hgb 10.9 L g/dL (12.0-15.0) Hct 34.3 L % (37.0-47.0) MCV 99.4 fl (80-100) MCH 31.6 pg (26-34) MCHC 31.8 L g/dl (32-36) RDW 15.6 H % (11.5-14.5) Plt Count 262 k/mm3 (150-375) MPV 9.7 fl (7.4-10.4) Sodium 139 mmol/L (137-145) Potassium 3.2 L mmol/L (3.4-5.0) Chloride 107 mmol/L (98-107) Carbon Dioxide 23 mmol/L (22-30) Anion Gap 9 mmol/L (8-16) BUN 20 H mg/dL (7-17) Creatinine 0.60 L mg/dL (0.7-1.0) Estim Creat Clear Calc 61 ml/min Estimated GFR > 60 (59 - ) Glucose 107 mg/dL (65-110) Calcium 9.0 mg/dL (8.4-10.2) Magnesium 2.1 mg/dL (1.6-2.3) Patient hx anesthesia problems: none Family hx anesthesia problems: none Results Review: All pre-operative results and documents have been reviewed as part of the pre-operative evaluation. [facility] Past Medical History Medical History (Updated 07/02/23 @ 15:19 by Luis Silver MD) Anemia Colon, diverticulosis Dyslipidemia Essential (primary) hypertension Macular degeneration NSAID long-term use Osteoarthritis Osteopenia Prediabetes Rectal bleeding Family History Family History Sibling Family history of malignant neoplasm of breast in first degree relative Social History Social History Smoking status: Former smoker Tobacco type: cigarettes Second hand tobacco smoke exposure: No Smoking end date: 09/20/79 Alcohol intake: current Substance use: never Substance use type: does not use Lack of Transportation: No Lack of Food: Never True Current
[2023-07-05] MEDS: BENZOCAINE (*SP) 60 ML SPRAY CAN (HURRICAINE) 1 SPRAY MUCOUS MEM (12:21)
--- NOTE | 2023-07-05 12:32 | SUR.OPER ---
EGD: [id number] COLON: Start 1232
--- NOTE | 2023-07-05 15:31 | ECG_ITS ---
Measurements Intervals [place] Rate: 85 P: CT: 143 QRS: 2 QRSD: 88 T: 7 QT: 332 QTc: 395 Interpretive Statements SINUS RHYTHM WITH PREMATURE ATRIAL CONTRACTIONS BASELINE ARTIFACT MODERATE VOLTAGE CRITERIA FOR LVH, CONSIDER NORMAL VARIANT MINIMAL ST DEPRESSION ABNORMAL ECG COMPARED TO ECG 07/02/2023 12:48:54 ST (T WAVE) DEVIATION NOW PRESENT Electronically Signed On 07-05-2023 17:28:12 CDT by Manuel Blas M.D.
--- NOTE | 2023-07-05 17:06 | PM.DS ---
DS: Admitting Diagnosis Discharge Date 07/05/23 Admitting Diagnosis Rectal bleeding DS: Discharge Diagnosis Discharge Diagnosis (1) Acute GI bleeding: Code(s): K92.2 - Gastrointestinal hemorrhage, unspecified Status: Acute (2) Acute blood loss anemia: Code(s): D62 - Acute posthemorrhagic anemia Status: Acute (3) Dysrhythmia: Code(s): I49.9 - Cardiac arrhythmia, unspecified Status: Acute Assessment and Plan: Patient with dysrhythmia noted on the telemetry possibly AFib and/or Aflutter vs loss of P wave from 1st degree. EKG reviewed showing NSR. Echo showing EF 70%, mild asymmetric septal increased LV wall thickness. Grade I diastolic dysfunction and moderate pulmonary HTN. Will add metoprolol when BP improves. Monitor on telemetry. May need home monitoring. Obviously no anticoagulation. (4) Essential (primary) hypertension: Code(s): I10 - Essential (primary) hypertension Status: Acute (5) Ovarian cyst: Code(s): N83.209 - Unspecified ovarian cyst, unspecified side Status: Acute DS: Summary Hospital Course Reason for hospitalization: 88yo female with pre-DM and HTN here for rectal bleeding. Please see H&P for details. Hospital Course: Patient presents with acute rectal bleeding.? She was having bright red blood per rectum.?She does take chronic NSAIDs.?Hemoglobin was normal in January but she states that she was diagnosed with anemia recently and started on iron.? She could not tolerate the iron due to constipation.?Iron studies c/w iron deficiency (except low TIBC). Ferritin low end of normal at 33. B12 deficiency noted and replacement ordered. Folate level okay.? GI was consulted.? Hemoglobin was 8.2 on admission but dropped to 6.6 and was transfused 1 unit. Hgb improved but dropped again to 6.9 and received 2U PRBC. Hgb climbed to 9-10 range and remained stable. She was treated with Protonix. Patient was on telemetry and noted to have dysrhythmia possibly AFib and/or Aflutter vs loss of P wave from 1st degree.? EKG reviewed showing NSR. Echo showing EF 70%, mild asymmetric septal increased LV wall thickness. Grade I diastolic dysfunction and moderate pulmonary HTN.? CT scan showing no acute process but did show a left adnexal cyst measuring 5.3cm. This will need to be monitored as outpatient. She had an EGD showing small hiatal hernia and mild gastritis. Colonoscopy showing multiple diverticula t/o the colon but mostly left sided. No active bleeding. A few small sized internal hemorrhoids were seen and were not actively bleeding. She was having normal BMs without blood. Hgb was stable. She overall did well and was able to be discharged home on 07/05/23. Status at Discharge Cognitive/behavioral status at discharge: stable Time Spent with Patient Time attestation: Total time spent providing and/or coordinating discharge services: 40 minutes Time spent: Greater than 30 minutes Exam Narrative: AF 97.1 110/82 99 18 100% ra Gen - NARD sitting up in the chair Chest - CTA bilaterally, nml RR CV - RRR S1/S2. Tele showing possibly AFib Abd - Soft, obese, NT Ext - No pedal edema Psych - Nml mood and affect Skin - Warm and dry DS: Data Data Completed and Pending Pending studies at discharge: Pending at discharge 07/05/23 12:36 Surgical [PTH] Routine Labs on day of discharge: Labs from last 24 hours 07/05/23 07/05/23 07/04/23 06:11 01:25 18:23 WBC 6.1 RBC 3.45 L Hgb 10.9 L 10.5 L 10.6 L Hct 34.3 L 33.7 L 35.7 L MCV 99.4 MCH 31.6 MCHC 31.8 L RDW 15.6 H Plt Count 262 MPV 9.7 Sodium 139 Potassium 3.2 L Chloride 107 Carbon Dioxide 23 Anion Gap 9 BUN 20 H Creatinine 0.60 L Estim Creat Clear Calc 61 Estimated GFR > 60 Glucose 107 Calcium 9.0 Magnesium 2.1 Discharge Plan Discharge Attending physician on discharge: Stephen Harman
== END 2023-07-05 18:05 | disposition home or self-care (01) | DRG 378 ==
LOC: ANHED 20:52 → ANH3MEDSUR 22:07
PROVIDERS: Internal Medicine Gastroenterology; Physician Assistant; Admitting Provider Internal Medicine; Emergency Provider Emergency Medicine; PCP Family Medicine; Visit Provider Internal Medicine
PROC: 0DJ08ZZ Inspection of Upper Intestinal Tract, Via Natural or Artificial Opening Endoscopic (ICD-10-PCS; CPT 43235; principal; 2023-07-05 15:00)
DX: K57.31 Diverticulosis of large intestine without perforation or abscess with bleeding (principal); D62 Acute posthemorrhagic anemia; K44.9 Diaphragmatic hernia without obstruction or gangrene; K29.70 Gastritis, unspecified, without bleeding; K64.8 Other hemorrhoids; I49.9 Cardiac arrhythmia, unspecified; I27.20 Pulmonary hypertension, unspecified; I10 Essential (primary) hypertension; R73.03 Prediabetes; K21.9 Gastro-esophageal reflux disease without esophagitis; N83.202 Unspecified ovarian cyst, left side; E78.5 Hyperlipidemia, unspecified; H35.30 Unspecified macular degeneration; M19.90 Unspecified osteoarthritis, unspecified site; M85.80 Other specified disorders of bone density and structure, unspecified site; Z79.1 Long term (current) use of non-steroidal anti-inflammatories (NSAID); Z87.891 Personal history of nicotine dependence
CPT/HCPCS: 36415; 36430; 74177; 80048; 80053; 82607; 82728; 82746; 83540; 83550; 83735; 85014; 85018; 85025; 85027; 85610; 85730; 86850; 86900; 86901; 86923; 88305; 93005; 99285; A9270; C8929; C9113; G0378; J1756; J1940; J3420; J7030; J7050; J7120; P9016; Q9957; Q9967

== ENCOUNTER 2023-07-19 10:57 | Outpatient (CLI) | payer MEDICARE, SELFPAY ==
[2023-07-19 13:08] LABS: Basophils Percent Auto 0.8 % (0.2-1.2); Eosinophils Absolute Auto 0.3 K/mm3 (0-0.3); Eosinophils Percent Auto 6.7 % (0-4.4); Hematocrit 38.2 % (37.0-47.0); Hemoglobin 11.6 g/dL (12.0-15.0); Immature Granulocyte Absolute 0.01 K/mm3 (0.00-0.031); Immature Granulocyte Percent A 0.2 % (0-0.5); Lymphocytes Absolute Auto 0.81 K/mm3 (0.9-3.2); Lymphocytes Percent Auto 15.9 % (18.3-44.2); Mean Corpuscular HGB Conc 30.4 g/dl (32-36); Mean Corpuscular Hemoglobin 30.3 pg (26-34); Mean Corpuscular Volume 99.7 fl (80-100); Mean Platelet Volume 9.6 fl (7.4-10.4); Monocytes Absolute Auto 0.5 K/mm3 (0.1-0.6); Monocytes Percent Auto 9.1 % (2.6-8.5); Neutrophils Absolute Auto 3.4 K/mm3 (1.3-6.7); Neutrophils Percent Auto 67.3 % (45.5-73.1); Platelet Count Result 301 k/mm3 (150-375); Red Blood Count 3.83 M/mm3 (4.2-5.4); Red Cell Distribution Width 14.3 % (11.5-14.5); White Blood Count 5.1 K/mm3 (4.5-10.0)
[2023-07-19 13:31] LABS: Alanine Aminotransferase 23 U/L (6-35); Albumin Level 3.9 g/dL (3.5-5.1); Alkaline Phosphatase 93 U/L (38-126); Anion Gap 4 mmol/L (8-16); Aspartate Amino Transferase 28 U/L (14-36); Bilirubin,Total 0.6 mg/dL (0.2-1.3); Blood Urea Nitrogen 15 mg/dL (7-17); Calcium 9.2 mg/dL (8.4-10.2); Carbon Dioxide 29 mmol/L (22-30); Chloride 105 mmol/L (98-107); Estimated Glomerular Filt Rate > 60; Glucose 104 mg/dL (65-110); Potassium 4.6 mmol/L (3.4-5.0); Sodium 138 mmol/L (137-145)
== END 2023-07-19 10:58 | disposition home or self-care (01) ==
LOC: ANHGOSHLAB 10:58
PROVIDERS: PCP Family Medicine; Visit Provider Family Medicine
DX: D62 Acute posthemorrhagic anemia (principal); I10 Essential (primary) hypertension
CPT/HCPCS: 36415; 80053; 85025

== ENCOUNTER 2024-02-25 08:59 | Outpatient (CLI) | payer MEDICARE, SELFPAY ==
[2024-02-25 18:34] LABS: Basophils Absolute Auto 0.1 K/mm3 (0.0-0.1); Basophils Percent Auto 1.1 % (0.2-1.2); Eosinophils Absolute Auto 0.5 K/mm3 (0-0.3); Eosinophils Percent Auto 9.8 % (0-4.4); Hematocrit 41.1 % (37.0-47.0); Hemoglobin 13.2 g/dL (12.0-15.0); Lymphocytes Absolute Auto 1.27 K/mm3 (0.9-3.2); Mean Corpuscular HGB Conc 32.1 g/dl (32-36); Mean Corpuscular Hemoglobin 31.3 pg (26-34); Mean Corpuscular Volume 97.4 fl (80-100); Mean Platelet Volume 10.4 fl (7.4-10.4); Monocytes Absolute Auto 0.5 K/mm3 (0.1-0.6); Monocytes Percent Auto 10.6 % (2.6-8.5); Neutrophils Absolute Auto 2.4 K/mm3 (1.3-6.7); Neutrophils Percent Auto 51.5 % (45.5-73.1); Platelet Count Result 250 k/mm3 (150-375); Red Blood Count 4.22 M/mm3 (4.2-5.4); Red Cell Distribution Width 13.6 % (11.5-14.5); White Blood Count 4.7 K/mm3 (4.5-10.0)
[2024-02-25 18:36] LABS: Alanine Aminotransferase 18 U/L (6-35); Albumin Level 3.8 g/dL (3.5-5.1); Alkaline Phosphatase 94 U/L (38-126); Anion Gap 6 mmol/L (4-12); Aspartate Amino Transferase 27 U/L (14-36); Bilirubin,Total 0.6 mg/dL (0.2-1.3); Blood Urea Nitrogen 23 mg/dL (7-17); Calcium 9.3 mg/dL (8.4-10.2); Carbon Dioxide 26 mmol/L (22-30); Chloride 108 mmol/L (98-107); Cholesterol 151 mg/dL (0-200); Estimated Glomerular Filt Rate > 60; Glucose 101 mg/dL (65-110); HDL Direct 44 mg/dL; Magnesium 2.3 mg/dL (1.6-2.3); Potassium 4.1 mmol/L (3.4-5.0); Sodium 140 mmol/L (137-145); Triglycerides 74 mg/dL (<150)
[2024-02-25 18:47] LABS: LDL Cholesterol Direct 87 mg/dL
[2024-02-25 19:45] LABS: Hemoglobin A1C 5.9 % (<5.7)
== END 2024-02-25 09:00 | disposition home or self-care (01) ==
LOC: ANHGOSHLAB 09:00
PROVIDERS: PCP Family Medicine; Visit Provider Family Medicine
DX: E78.5 Hyperlipidemia, unspecified (principal); R73.03 Prediabetes; E55.9 Vitamin D deficiency, unspecified; Z13.228 Encounter for screening for other metabolic disorders; R53.83 Other fatigue
CPT/HCPCS: 36415; 80053; 80061; 82306; 83036; 83735; 85025

== ENCOUNTER 2024-08-02 14:17 | Outpatient (CLI) | payer MEDICARE, SELFPAY ==
[2024-08-02 19:51] LABS: Alanine Aminotransferase 37 U/L (6-35); Albumin Level 4.3 g/dL (3.5-5.1); Alkaline Phosphatase 107 U/L (38-126); Anion Gap 7 mmol/L (4-12); Aspartate Amino Transferase 66 U/L (14-36); Bilirubin,Total 0.8 mg/dL (0.2-1.3); Blood Urea Nitrogen 22 mg/dL (7-17); Calcium 9.5 mg/dL (8.4-10.2); Carbon Dioxide 29 mmol/L (22-30); Chloride 102 mmol/L (98-107); Estimated Glomerular Filt Rate > 60; Glucose 100 mg/dL (65-110); Sodium 138 mmol/L (137-145)
[2024-08-02 20:11] LABS: Vitamin D 25 Hydroxy 26.7 ng/mL
== END 2024-08-02 14:18 | disposition home or self-care (01) ==
LOC: ANHGOSHLAB 14:19
PROVIDERS: PCP Family Medicine; Visit Provider Family Medicine
DX: R73.03 Prediabetes (principal); I48.91 Unspecified atrial fibrillation; I10 Essential (primary) hypertension; E55.9 Vitamin D deficiency, unspecified
CPT/HCPCS: 36415; 80053; 82306; 83036

== ENCOUNTER 2024-09-08 10:06 | Outpatient (CLI) | payer MEDICARE, SELFPAY ==
[2024-09-08 18:09] LABS: Eosinophils Absolute Auto 0.1 K/mm3 (0-0.3); Eosinophils Percent Auto 2.6 % (0-4.4); Hematocrit 34.9 % (37.0-47.0); Hemoglobin 10.6 g/dL (12.0-15.0); Immature Granulocyte Absolute 0.01 K/mm3 (0.00-0.031); Immature Granulocyte Percent A 0.3 % (0-0.5); Lymphocytes Percent Auto 33.2 % (18.3-44.2); Mean Corpuscular HGB Conc 30.4 g/dl (32-36); Mean Corpuscular Hemoglobin 30.9 pg (26-34); Mean Corpuscular Volume 101.7 fl (80-100); Mean Platelet Volume 9.8 fl (7.4-10.4); Monocytes Absolute Auto 0.4 K/mm3 (0.1-0.6); Neutrophils Absolute Auto 2.1 K/mm3 (1.3-6.7); Neutrophils Percent Auto 52.9 % (45.5-73.1); Platelet Count Result 297 k/mm3 (150-375); Red Blood Count 3.43 M/mm3 (4.2-5.4); Red Cell Distribution Width 13.6 % (11.5-14.5); White Blood Count 3.9 K/mm3 (4.5-10.0)
[2024-09-08 18:36] LABS: Anisocytosis 1+; Hypochromasia 1+; Platelet Estimate Adequate (Adequate); Schistocytes None Seen
== END 2024-09-08 10:07 | disposition home or self-care (01) ==
LOC: ANHGOSHLAB 10:06
PROVIDERS: PCP Family Medicine; Visit Provider Family Medicine
DX: R53.1 Weakness (principal)
CPT/HCPCS: 36415; 85025

== ENCOUNTER 2024-09-08 10:21 | Outpatient (CLI) | payer MEDICARE, SELFPAY ==
--- NOTE | ~2024-09-08 | XR_ITS ---
EXAMINATION: XR chest 2V 09/08/2024 10:36 INDICATION: Upper respiratory infection, cough and shortness of breath PROCEDURE: 2 view chest COMPARISON: 05/20/2023 FINDINGS: The lungs are clear. The cardiomediastinal silhouette is within normal limits. There are no pleural effusions. There is no pneumothorax suspected. IMPRESSION: 1: NO ACUTE CARDIOPULMONARY DISEASE. Reviewed, dictated and finalized at location B. VISION ENGINEER
== END 2024-09-08 10:22 | disposition home or self-care (01) ==
LOC: GOSHIMG 10:22
PROVIDERS: PCP Family Medicine; Visit Provider Family Medicine
DX: R05.9 Cough, unspecified (principal); R06.02 Shortness of breath
CPT/HCPCS: 71046

== ENCOUNTER 2024-10-20 10:48 | Outpatient (CLI) | payer MEDICARE, SELFPAY ==
--- OUTSIDE RECORDS SUMMARY | 2024-10-20 10:54 | XMS_ITS | Referral Summary ---
Author Organization [facility] [address] Address [address] [place] [address] Care Team Providers Care Automatic Toe Laster Name Role Phone Nuzhat Velazquez MD Primary Care Provider Allergies No known active allergies Medications ergocalciferol (VITAMIN D) 50,000 unit capsule Take 1 capsule (50,000 Units total) by mouth once a week 01/20/2024 Active amLODIPine (NORVASC) 5 mg tablet Take 1 tablet (5 mg total) by mouth daily Active omeprazole (PriLOSEC) 20 mg capsule Take 1 capsule (20 mg total) by mouth daily Active cyanocobalamin, vitamin B-12, 1,000 mcg tablet extended release Take 1 tablet by mouth daily Active doxycycline monohydrate (MONODOX) 100 mg capsule Take 1 capsule (100 mg total) by mouth 2 (two) times a day Active magnesium oxide 400 mg magnesium capsule Take 400 mg by mouth daily Active ferrous sulfate 325 mg (65 mg of elemental iron) tabletIndication s:Iron Deficiency Anemia Take 1 tablet (325 mg total) by mouth as needed (every 2-3 days) Active acetaminophen (TYLENOL) 500 mg tablet Take 1 tablet (500 mg total) by mouth 2 (two) times a day Morning/Even ing Active celecoxib (CeleBREX) 100 mg capsuleIndicatio ns:Osteoarthriti s Take 1 capsule (100 mg total) by mouth 2 (two) times a day 60 capsule 04/10/2024 Active Active Problems Problem Noted Date Diagnosed Date Pain in shoulder 01/27/2016 Closed fracture of proximal end of humerus 01/26 Social History Tobacco Use Types Packs/Day Years Used Date Smoking Tobacco: Smoker, Current Status Unknown Personal Safety Answer Date Recorded Getting School Help Needed Not on file 12/02 Comments Unknown Sex and Gender Information Value Date Recorded Sex Assigned at Not on file 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 Gender Identity Not on file Sexual Orientation Not on file Last Filed Vital Signs Vital Sign Reading Time Taken Comments Blood Pressure 156/93 04/10/2024 8:40 AM CDT Pulse 85 04/10/2024 8:40 AM CDT Temperature - - Respiratory Rate - - Oxygen Saturation - - Inhaled Oxygen Concentration - - Weight 98.1 kg (216 lb 4.8 oz) 04/10/2024 8:40 A M CDT Height - - Body Mass Index - - Plan of Treatment Not on file Insurance [employer] MED[employer]ARE Care Teams Automatic Toe Laster Relationship Specialty Start Date End Date Nuzhat Velazquez MD [id number] [place] [address] [place] [id number] PCP - General Family Practice 07/01/23
--- OUTSIDE RECORDS SUMMARY | 2024-10-20 10:54 | XMS_ITS | Clinical Summary ---
Author Organization [facility] [address] Address [address] [place] [address] Care Team Providers Care Business Analytics Faculty Member Name Role Phone Nuzhat Velazquez MD Primary [...] fracture of proximal end of humerus 01/26 Family History Medical History Relation Name Comments Diabetes Brother Family history of diabetes mellitus - (Added by TW Conv) Heart disease Father Family history of cardiac disorder - (Added by TW Conv) Arthritis Sister Family history of arthritis - (Added by TW Conv) Cancer Sister Family history of malignant neoplasm - (Added by TW Conv) Relation Name Status Comments Brother Father Sister Social History Tobacco Use Types Packs/Day Years Used Date Smoking Tobacco: Smoker, Current Status Unknown Personal Safety Answer Date Recorded Getting School Help Needed Not on file 12/02 Comments Unknown Sex and Gender Information Value Date Recorded Sex Assigned at Not on file 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 Gender Identity Not on file Sexual Orientation Not on file Obstetrics History Last Filed Vital Signs Vital Sign Reading Time Taken Comments Blood Pressure 156/93 04/10/2024 8:40 AM CDT Pulse 85 04/10/2024 8:40 AM CDT Temperature - - Respiratory Rate - - Oxygen Saturation - - Inhaled Oxygen Concentration - - Weight 98.1 kg (216 lb 4.8 oz) 04/10/2024 8:40 A M CDT Height - - Body Mass Index - - Plan of Treatment Health Maintenance Due Date Last Done Comments Depression Screening 1935 Fall Risk Assessment 1935 Hepatitis B Screening 1953 Zoster Vaccine (1 of 2) 1985 Well Visit 65+ 01/03/2000 Pneumococcal vaccine 65+ (2 of 2 - PCV) 08/26/2005 08/26/2004 Covid-19 Vaccine (5 - 2023-2 5 season) 2024 08/25/2023, 07/16/2022, 08/23/2021, Additional history exists Influenza Vaccine (#1) 2024 , 07/16/2022, 08/07/2021, Additional history exists DTaP/Tdap/Td Vaccine (2 - Td or Tdap) 03/15/2025 03/15/2015, 08/26/2004 Insurance [employer] MEDICARE Care Teams Business Analytics Faculty Member Relationship Specialty Start Date End Date Nuzhat Velazquez MD [facility] [place] [address] PCP - General Family Practice 07/01/23
[2024-10-20 13:36] LABS: Basophils Absolute Auto 0.1 K/mm3 (0.0-0.1); Basophils Percent Auto 0.7 % (0.2-1.2); Eosinophils Absolute Auto 0.5 K/mm3 (0-0.3); Eosinophils Percent Auto 6.8 % (0-4.4); Hematocrit 36.8 % (37.0-47.0); Hemoglobin 10.9 g/dL (12.0-15.0); Immature Granulocyte Absolute 0.01 K/mm3 (0.00-0.031); Immature Granulocyte Percent A 0.1 % (0-0.5); Lymphocytes Absolute Auto 1.01 K/mm3 (0.9-3.2); Mean Corpuscular HGB Conc 29.6 g/dl (32-36); Mean Corpuscular Hemoglobin 28.8 pg (26-34); Mean Corpuscular Volume 97.4 fl (80-100); Mean Platelet Volume 10.1 fl (7.4-10.4); Monocytes Absolute Auto 0.7 K/mm3 (0.1-0.6); Monocytes Percent Auto 10.3 % (2.6-8.5); Neutrophils Absolute Auto 4.5 K/mm3 (1.3-6.7); Neutrophils Percent Auto 67.1 % (45.5-73.1); Platelet Count Result 323 k/mm3 (150-375); Red Blood Count 3.78 M/mm3 (4.2-5.4); Red Cell Distribution Width 13.8 % (11.5-14.5); White Blood Count 6.7 K/mm3 (4.5-10.0)
[2024-10-20 13:49] LABS: Iron 60 ug/dL (37-170)
[2024-10-20 13:55] LABS: Alanine Aminotransferase 20 U/L (6-35); Albumin Level 3.8 g/dL (3.5-5.1); Alkaline Phosphatase 120 U/L (38-126); Anion Gap 8 mmol/L (4-12); Aspartate Amino Transferase 41 U/L (14-36); Bilirubin,Total 0.6 mg/dL (0.2-1.3); Blood Urea Nitrogen 25 mg/dL (7-17); Calcium 9.6 mg/dL (8.4-10.2); Carbon Dioxide 28 mmol/L (22-30); Chloride 104 mmol/L (98-107); Estimated Glomerular Filt Rate > 60; Glucose 99 mg/dL (65-110); Potassium 4.7 mmol/L (3.4-5.0); Sodium 140 mmol/L (137-145)
[2024-10-20 13:59] LABS: Hypochromasia 1+; Platelet Estimate Adequate (Adequate); Schistocytes None Seen
[2024-10-20 14:08] LABS: Percent Iron Saturation 17 % (20-50)
[2024-10-20 15:01] LABS: Folic Acid 10.7 ng/mL (2.76->20)
== END 2024-10-20 10:49 | disposition home or self-care (01) ==
LOC: ANHGOSHLAB 10:49
PROVIDERS: PCP Family Medicine; Visit Provider Family Medicine
DX: D50.9 Iron deficiency anemia, unspecified (principal); I10 Essential (primary) hypertension; R74.8 Abnormal levels of other serum enzymes
CPT/HCPCS: 36415; 80053; 82607; 82728; 82746; 83540; 83550; 85025